=== PATIENT | male | born 1960 | race Caucasian/White ===

== ENCOUNTER → 2016-12-25 | Outpatient (CLI) | payer BC | END | disposition home or self-care (01) | LOC: CDC 15:52 | DX: Z01.810 Encounter for preprocedural cardiovascular examination (principal); K42.9 Umbilical hernia without obstruction or gangrene; I45.4 Nonspecific intraventricular block | CPT/HCPCS: 93000 ==

== ENCOUNTER 2017-01-06 05:16 | Day surgery (SDC) | payer BC ==
[~2017-01-06] VITALS: Ht 180.3 cm; Wt 95.2 kg
[~2017-01-06 05:16] MED LIST: HYDROCHLOROTHIA25 MG PO; LISINOPRIL20 MG PO; PROAIR HFA8.5 GM IH; PULMICORT FLEX90 MCG IH; TRAZODONE HCL50 MG PO
[2017-01-06 06:05] VITALS: BP 110/73
[2017-01-06] MEDS ORDERED: ULTRAM50 MG PO (09:01)
[2017-01-06 09:55] VITALS: BP 118/84
[2017-01-06 10:32] VITALS: BP 123/77
== END 2017-01-06 11:15 | disposition home or self-care (01) ==
LOC: SDC 05:16
PROC: 0WUF4JZ Supplement Abdominal Wall with Synthetic Substitute, Percutaneous Endoscopic Approach (ICD-10-PCS; principal; 2017-01-06)
DX: K42.0 Umbilical hernia with obstruction, without gangrene (principal); I10 Essential (primary) hypertension; J44.9 Chronic obstructive pulmonary disease, unspecified; K21.9 Gastro-esophageal reflux disease without esophagitis; F17.210 Nicotine dependence, cigarettes, uncomplicated
CPT/HCPCS: C1781; J0330; J0690; J1100; J1170; J1885; J2250; J2405; J2710; J3010